=== PATIENT | female | born 1940 | race Caucasian/White ===

== ENCOUNTER 2017-05-20 09:00 | Outpatient (CLI) | payer MEDICARE, OTHER ==
[2012-04-15 08:25] VITALS: BMI 32.2
== END 2017-05-20 10:55 ==
LOC: D.OPS 09:00
DX: K21.9 Gastro-esophageal reflux disease without esophagitis (principal)

== ENCOUNTER 2017-06-10 08:20 | Day surgery (SDC) | payer MEDICARE, OTHER ==
[2017-06-09 12:15] LABS: BASOPHILS 0.1 % (0-2); EOSINOPHILS 0.5 % (0-7); HEMATOCRIT 39.3 % (36.0-48.0); HEMOGLOBIN 13.3 g/dL (12-16); IMMATURE GRANULOCYTES 0.5 % (0-5); LYMPHOCYTES 16.4 % (15-50); MCH 31.4 pg (26.0-34.0); MCHC 33.8 g/dL (31.0-37.0); MCV 92.9 fL (80.0-100.0); MEAN PLATELET VOLUME 9.4 fL (7.4-10.4); MONOCYTES 6.6 % (2-11); NEUTROPHILS 75.9 % (40-80); PLATELET COUNT 313 10x3/uL (130-400); RBC 4.23 10x6/uL (4.00-5.40); RDW 12.7 % (11.5-14.5); WBC 8.8 10x3/uL (4.8-10.8)
[2017-06-09 12:44] LABS: CARBON DIOXIDE 26.2 mmol/L (21.0-32.0); CREATININE - SERUM 0.8 mg/dL (0.6-1.3); POTASSIUM - SERUM 4.2 mmol/L (3.5-5.1)
--- NOTE | ~2017-06-10 | OP ---
PATIENT NAME: CHARLEY DIEZ MEDICAL RECORD: [id number] :42 LOCATION:[facility] ADMISSION DATE: SURGEON: TEE ALONSO MD DATE OF OPERATION: 06/10/2017 PREOPERATIVE DIAGNOSES: 1. Gastroesophageal reflux disease. 2. Hiatal hernia. 3. Hyperlipidemia. 4. Chronic obstructive pulmonary disease. 5. Asthma. 6. Arthritis. POSTOPERATIVE DIAGNOSES: 1. Gastroesophageal reflux disease. 2. Hiatal hernia. 3. Hyperlipidemia. 4. Chronic obstructive pulmonary disease. 5. Asthma. 6. Arthritis. PROCEDURE: Laparoscopic Shanelle with hiatal hernia repair. SURGEON: Tee Alonso MD REPORT OF PROCEDURE: The patient's abdomen was prepped and draped in sterile fashion. A Veress needle was inserted in the left upper quadrant and the abdomen was insufflated. An 11-mm Visiport trocar was inserted in the midline just above the umbilicus. I could see the Veress needle and I saw there was no sign of any injury to bowel or surrounding structures. The Veress needle was then removed and in its place, an 11-mm trocar was placed in the left subcostal region. We then placed a 5-mm trocar in the epigastrium, a 5-mm trocar in the left lateral abdomen, and the final 5-mm trocar in the right lateral subcostal region. The liver retractor was inserted and the left lobe of the liver was elevated. This revealed a moderate sized hiatal hernia with about 1/4 of the stomach elevated up into the thoracic cavity. This was pulled down easily into the abdominal cavity, but would immediately go back into the thoracic cavity when it was released. We started on the lesser curvature of the stomach and took down these attachments using Harmonic scalpel up to the right side of the right yosi. This was continued up into the thoracic cavity. We continued our dissection into the thoracic cavity around the esophagus as far anteriorly and posteriorly as possible. We then approached the greater curvature of the stomach and took down the short gastric using Harmonic scalpel up to the left side of the right yosi. Again, we penetrated into the thoracic cavity and took down all the attachments until we had a 360-degree inspection of the esophagus. At this point, the stomach and esophagus would easily rest in the abdominal cavity. A 0 Polydek times 3 was used to reapproximate the esophageal hiatus. We then performed a 360-degree posterior wrap of the fundus of the stomach around the distal esophagus. This was done with interrupted 0 Polydek times 3 with the top and the bottom suture incorporating a bite of the esophagus. The wrap appeared to be in good position. There was no sign of any active bleeding at the conclusion of the case. We then irrigated out the right upper quadrant. The liver retractor was removed. The 11-mm trocar site fascias were then closed with interrupted 0 Vicryls using a Andrea-Mingo suture passer device. The ports and insufflation were then removed. We then infused 10 mL of 0.25% OPERATIVE REPORT [id number] CHARLEY DIEZ MARIO Marcaine with epinephrine into the tissue surrounding the incisions and closed the incisions with subcutaneous 5-0 Monocryl. COMPLICATIONS: None. CONDITION: Stable. ANESTHESIA: General endotracheal and local. BLOOD LOSS: Minimal. TRANSINT:[id number] Voice Confirmation ID: [id number] DOCUMENT ID: [id number] TEE ALONSO MD at 1319 CC: [id number] CAMPO DO [id number] DICTATION DATE: 06/10/17 1130 GAS EXAMINER: 06/10/17 1328 [facility] 06/11/17 [facility] [address] [place] [address]
[2017-06-10] MEDS ORDERED: ADVAIR 250/501 DISK INH (08:58)
[2017-06-10] MEDS ORDERED: NASONEX NASAL S17 GM (08:58)
[2017-06-10] MEDS ORDERED: SYSTANE 0.3-0.4%5 ML (08:59)
[2017-06-10] MEDS ORDERED: BIOTIN5 MG PO (09:01)
[2017-06-10] MEDS ORDERED: CITRACAL + D E1 EACH PO (09:01)
[2017-06-10] MEDS ORDERED: FOLBIC RF TABL1 EACH PO (09:02)
[2017-06-10] MEDS ORDERED: MAG-OX 400 MG400 MG PO (09:03)
[2017-06-10] MEDS ORDERED: OMEPRAZOLE20 M1 PO (09:04)
[2017-06-10] MEDS ORDERED: CENTRUM SILVER1 TA1 PO (09:05)
[2017-06-10] MEDS ORDERED: TYLENOL PM1 TAB (09:06)
[2017-06-10] MEDS ORDERED: VITAMIN D2000 UNIT PO (09:06)
[2017-06-10] MEDS ORDERED: PRAVACHOL20 MG (09:07)
[2017-06-10] MEDS ORDERED: BAYER CHEWABLE81 MG PO (09:07)
[2017-06-10] MEDS ORDERED: MAXALT5 MG PO (09:08)
[2017-06-10] MEDS ORDERED: CARBINOXAMINE PO (09:12)
[2017-06-10] MEDS ORDERED: [UNRECOGNIZED DRUG - OTHER] (09:13)
[2017-06-10] MEDS ORDERED: FLAX (09:13)
[2017-06-10] MEDS ORDERED: FISH (09:13)
[2017-06-10 09:28] VITALS: BMI 32.6
[2017-06-10 15:48] VITALS: BP 150/78
[2017-06-10 20:00] VITALS: BP 143/75
[2017-06-11 00:49] VITALS: BMI 32.4
[2017-06-11 04:00] VITALS: BP 145/80
[2017-06-11 04:44] LABS: BASOPHILS 0 % (0-2); EOSINOPHILS 0 % (0-7); HEMATOCRIT 36.8 % (36.0-48.0); HEMOGLOBIN 12.5 g/dL (12-16); IMMATURE GRANULOCYTES 0.3 % (0-5); LYMPHOCYTES 6.5 % (15-50); MCH 30.8 pg (26.0-34.0); MCV 90.6 fL (80.0-100.0); MONOCYTES 5.2 % (2-11); PLATELET COUNT 324 10x3/uL (130-400); RBC 4.06 10x6/uL (4.00-5.40); RDW 12.6 % (11.5-14.5); WBC 11.4 10x3/uL (4.8-10.8)
[2017-06-11 04:48] LABS: CALC OSMOLALITY 269 mosm/kg (275-300); CALCIUM 8.6 mg/dL (8.5-10.1); CARBON DIOXIDE 23.9 mmol/L (21.0-32.0); CHLORIDE - SERUM 102 mmol/L (98-107); CREATININE - SERUM 0.7 mg/dL (0.6-1.3); GLUCOSE 108 mg/dL (74-106); POTASSIUM - SERUM 4.3 mmol/L (3.5-5.1); SODIUM 134 mmol/L (136-145); UREA NITROGEN 15 mg/dL (7-18); eGFR NON AFRICAN AMERICAN 86 mL/min (90-120)
[2017-06-11 08:02] VITALS: BP 143/78
[2017-06-11 12:50] VITALS: BP 149/78
[2017-06-11] MEDS ORDERED: HYDROCODONE-APA1 TAB PO (13:20)
[2017-06-11] MEDS ORDERED: REGLAN10 MG PO (13:21)
[2017-06-11 13:35] VITALS: BMI 32.4
== END 2017-06-11 16:38 | disposition home or self-care (01) ==
LOC: D.MS 08:20 → D.OPS 08:20 → D.PAN 12:15 → D.OPS 12:15 → D.MS 13:42 → D.OPS 06-11 16:38
PROVIDERS: Anesthesiology; Surgery
DX: K21.9 Gastro-esophageal reflux disease without esophagitis (principal); K44.9 Diaphragmatic hernia without obstruction or gangrene; E78.5 Hyperlipidemia, unspecified; J44.9 Chronic obstructive pulmonary disease, unspecified; M19.90 Unspecified osteoarthritis, unspecified site; Z01.812 Encounter for preprocedural laboratory examination